=== PATIENT | female | born 1950 | race Caucasian/White ===

== ENCOUNTER 2016-10-07 09:20 | Emergency (ER) | payer OTHER ==
[2016-10-07 09:31] VITALS: BP 128/57; PULSE 70; TEMP 98.6; BMI 20.1
[2016-10-07] MEDS ORDERED: MECLIZINE HCL 25 MG TABLET (FP) PO ONE (10:09)
[2016-10-07] MEDS ORDERED: MECLIZINE HCL 25 MG TABLET (FP) ONE (10:11)
--- NOTE | 2016-10-07 10:34 | PDOC ---
History of Present Illness - General Chief Complaint: Lightheaded Stated Complaint: DIZZINESS, FALL, RT THIGH PAIN Time Seen by Provider: 10/07/16 09:44 - History of Present Illness Initial Comments: 10/07/16 10:33 66-year-old female with a past medical history of MS, epilepsy, and GERD Her MS has been quiescent recently, but she does have some chronic left sided weakness due to the MS She also states that she stopped her Neurontin in the past few weeks Patient was in her usual state of health, when at 8:30 this morning she had the sudden onset of severe vertigo She denies any double vision, but does admit to some blurred vision She denies any change in her chronic left-sided weakness, and she denies any new left or right sided weakness She states that she was very dizzy, like the room was spinning, and was unable to walk She denies any recent intercurrent illnesses, and she denies any earache She states when she got up, she did "crumble" to her left side, and slid down, but denies any acute injury She states that she's felt a little diffusely shaky for the past few days, but nothing focal She denies any headache, fevers or chills, double vision She denies any chest pain or shortness of breath She denies any other complaints at this time, and the remainder of the review of systems is negative Past History - Past Medical History Allergies/Adverse Reactions: Allergies Allergy/AdvReac Type Severity Reaction Status Date / Time No Known Allergies Allergy Verified 10/07/16 09:22 Home Medications: Ambulatory Orders Esomeprazole Magnesium 40 mg PO DAILY 12/06/15 Glatiramer Acetate [Copaxone] 40 mg SQ MOWEFR 12/06/15 Lamotrigine [Lamictal] 300 mg PO BID 12/06/15 Lorazepam [Ativan] 1 mg PO PRN PRN 12/06/15 Eletriptan Hydrobromide [Relpax -] 20 mg PO ASDIR PRN 10/07/16 Lorazepam [Ativan] 0.25 mg PO HS 10/07/16 Lorazepam [Ativan] 0.5 mg PO TID PRN #14 tablet MDD 3 10/07/16 Meclizine HCl [Antivert -] 25 mg PO TID #21 tablet 10/07/16 Prednisone [Deltasone -] 20 mg PO DAILY #15 tablet 10/07/16 Anemia: No Asthma: No Cancer: No Cardiac Disorders: No CVA: No COPD: No CHF: No DVT: No Dementia: No Diabetes: No Dialysis: No GI Disorders: Yes (GERD) Disorders: No HTN: No Hypercholesterolemia: No HIV: No Kidney Stones: No Liver Disease: No Psychiatric Problems: No Suicide Attempt (Hx): No Seizures: Yes Thyroid Disease: No Lung CA: No Other medical history: MS - Psycho/Social/Smoking Cessation Hx Anxiety: No Suicidal Ideation: No Smoking History: Never smoked Information on smoking cessation initiated: No Hx Alcohol Use: No Drug/Substance Use Hx: No Substance Use Type: None Review of Systems - Review of Systems Able to Perform ROS?: Yes Comments:: 10/07/16 10:39 12 point review of systems is as per history of present illness and otherwise negative *Physical Exam - Vital Signs Last Vital Signs Temp Pulse Resp BP Pulse Ox 98.6 F 70 18 128/57 98 10/07/16 09:20 10/07/16 09:20 10/07/16 09:20 10/07/16 09:20 10/07/16 09:20 - Physical Exam Comments: 10/07/16 10:42 Physical exam Last Vital Signs Temp Pulse Resp BP Pulse Ox 98.6 F 70 18 128/57 98 10/07/16 09:20 10/07/16 09:20 10/07/16 09:20 10/07/16 09:20 10/07/16 09:20 GENERAL: The patient is awake, alert, and fully oriented, and in no apparent distress. HEAD: Normal with no signs of trauma. EYES: Pupils equal, round and reactive to light, extraocular movements intact, sclera anicteric, conjunctiva are normal. No nystagmus is noted ENT: TMs normal, nares patent, oropharynx clear without exudates. Moist mucous membranes. NECK: Normal range of motion, supple Rapid change in head position reproduces the symptoms LUNGS: Breath sounds equal, clear to auscultation bilaterally. No wheezes, and no crackles. HEART: Regular rate and rhythm, normal S1 and S2 without murmur, rub or gallop. ABDOMEN: Soft, nontender, normoactive bowel sounds. No guarding, no rebound. No masses appreciated. EXTREMITIES: Normal range of motion, no edema. No clubbing or cyanosis. No cords, erythema, or tenderness. No tenderness or bruising is noted on the right or left thigh NEURO: Mental status: The patient is oriented x3. Cranial nerves: Cranial nerves II through XII are intact There is a subtle facial asymmetry noted, but patient states that that is her baseline She does have an equal smile, and is able to close and open her eyes and raises her eyebrows equally Motor: There is mild decreased strength in the left upper and left lower extremity, which patient states is at her baseline and unchanged Motor strength on the right side is normal Cerebellar: [id number] is normal in both upper extremities. Heel-knee- williamson is normal in both lower extremities. Patient was very dizzy when I attempted to stand her up and walk her, and was unsteady Gait: Not testable at this time PSYCH: Normal mood, normal affect. SKIN: Warm, Dry, normal turgor, no rashes or lesions noted. ED Treatment Course - LABORATORY CBC & Chemistry Diagram: 10/07/16 10:15 10/07/16 10:15 - RADIOLOGY Radiology Studies Ordered: Category Date Time Status BRAIN MRI W&W/O CONTRAST [MRI] Stat MRI 10/07/16 10:27 Ordered - Medications Given in the ED: ED Medications Discontinued Medications Generic Name Dose Route Start Last Admin Trade Name Freq PRN Reason Stop Dose Admin Meclizine HCl 25 mg 10/07/16 10:09 10/07/16 10:15 Antivert - PO 10/07/16 10:10 25 mg ONCE ONE Administration Medical Decision Making - Medical Decision Making 10/07/16 10:45 Case discussed with patient's Neurologist/MS specialist Dr Bin Morales, [address] [facility] He thinks this is more likely to be peripheral rather than central, However, he is concerned about potentially new MS activity in the brainstem or cerebellar area He states her MS has been quiescent recently Will get a brain MRI with and without, with IAC views Approved by Dr. Llanos radiology EKG Normal sinus rhythm 71, normal axis Normal AV and IV conduction time Normal EKG 10/07/16 11:30 Patient starting to feel better after Antivert Awaiting MRI Laboratory Results - last 24 hr 10/07/16 10/07/16 10/07/16 10:15 10:15 10:30 WBC 5.6 RBC 4.17 Hgb 12.0 Hct 36.9 MCV 88.5 MCHC 32.6 RDW 12.6 Plt Count 243 MPV 8.4 Sodium 141 Potassium 4.0 Chloride 101 Carbon Dioxide 30 H Anion Gap 10 BUN 13 Creatinine 0.8 Creat Clearance w eGFR > 60 Random Glucose 96 Calcium 9.5 Magnesium 2.0 Total Bilirubin 0.4 AST 25 ALT 19 Alkaline Phosphatase 77 Creatine Kinase 85 Troponin I < 0.03 L Total Protein 7.0 Albumin 4.0 10/07/16 14:06 MRI with and without contrast IAC cuts included No acute ischemic changes are seen The IAC's are normal and symmetrical No abnormal signal intensity is seen in the medulla, laura, mesencephalon, or cerebellar hemispheres Slightly widened cerebellar sulci are noted No abnormality is seen in the pontomedullary junction region Major caliber vascular structures including [place] and peripheral dural venous sinuses show normal flow Supratentorial white matter disease is noted, consistent with the patient's known history of MS Patient feeling much better after Antivert, ambulatory without difficulty with normal gait Impression-peripheral vertigo, history of stable MS *DC/Admit/Observation/Transfer Diagnosis at time of Disposition: Vertigo - Discharge Dispostion Disposition: HOME Condition at time of disposition: Improved - Prescriptions Prescriptions: Meclizine HCl [Antivert -] 25 mg PO TID #21 tablet Lorazepam [Ativan] 0.5 mg PO TID PRN #14 tablet MDD 3 PRN Reason: Vertigo Prednisone [Deltasone -] 20 mg PO DAILY #15 tablet - Patient Instructions Printed Discharge Instructions: Vertigo Additional Instructions: Antivert (meclizine)-one pill every 8 hours Prednisone taper as directed-start today Ativan as directed if needed-do not drive if you are taking this medication Followup with your primary care physician in 24-48 hours Return immediately if you worsen in any way Take your medications as directed Please follow-up with your neurologist as soon as possible Please drink plenty of water today to flush the MRI dye out of your system
[2016-10-07 10:57] LABS: MCH 28.9 pg (25.7-33.7); MCHC 32.6 g/dl (32.0-36.0); MEAN CELL VOLUME 88.5 fl (80-96); MEAN PLT VOLUME 8.4 fl (7.5-11.1); PLATELET COUNT 243 K/MM3 (134-434); RDW 12.6 % (11.6-15.6); WHITE BLOOD COUNT 5.6 K/mm3 (4.0-10.0)
[2016-10-07 11:02] LABS: CPK(DFH) 85 IU/L (26-140)
[2016-10-07 11:03] LABS: ALK PHOS 77 U/L (32-92); ANION GAP 10 (8-16); BILIRUBIN,TOTAL 0.4 mg/dl (0.2-1.0); CALCIUM 9.5 mg/dl (8.4-10.2); CO2 30 mmol/L (22-28); CREATININE 0.8 mg/dl (0.6-1.3); GLUCOSE,RANDOM 96 mg/dl (74-106); SGOT/AST 25 U/L (10-42); SGPT/ALT 19 U/L (10-40)
[2016-10-07 11:16] LABS: TROPONIN I (DFP) < 0.03 ng/ml (0.03-0.50)
[2016-10-07] MEDS ORDERED: SODIUM CHLORIDE 1,000 ML IV STA (11:20)
--- NOTE | 2016-10-08 09:54 | EKG ---
Test Reason : Blood Pressure : / mmHG Vent. Rate : 071 BPM Atrial Rate : 071 BPM P-R Int : 160 ms QRS Dur : 080 ms QT Int : 386 ms P-R-T Axes : 080 063 060 degrees QTc Int : 419 ms NORMAL SINUS RHYTHM NORMAL ECG NO PREVIOUS ECGS AVAILABLE Confirmed by OLGA BIRD MD ([id number]) on 10/08/2016 9:54:05 AM Referred By: DIANA LOW Confirmed By:OLGA BIRD MD
== END 2016-10-07 14:30 | disposition home or self-care (01) ==
LOC: FER 09:20
PROC: 3E0337Z Introduction of Electrolytic and Water Balance Substance into Peripheral Vein, Percutaneous Approach (ICD-10-PCS; principal; 2016-10-07)
DX: R42 Dizziness and giddiness (principal); G35 Multiple sclerosis; K21.9 Gastro-esophageal reflux disease without esophagitis; G40.909 Epilepsy, unspecified, not intractable, without status epilepticus
CPT/HCPCS: 36415; 70553-TC; 80053; 82550; 83735; 84484; 85027; 93005; 99285-25; Q9967

== ENCOUNTER 2017-04-12 14:25 | Emergency (ER) | payer OTHER ==
--- NOTE | 2017-04-12 14:59 | PDOC ---
History of Present Illness - General History Source: Patient Exam Limitations: No Limitations - History of Present Illness Initial Comments: 04/12/17 15:13 67 y/o F with a PMHx of MS, epilepsy, vertigo, osteoporosis presents to the ED with bilateral blurry vision since yesterday. The patient states that she has associated right eye pain and migraines. She describes her right eye pain as feeling like she was punched in the face. She took her migraine medication yesterday with relief, but did not take it today. Patient went to urgent care today with the same symptoms, and they sent her to the ED for further evaluation. She believes that the blurry vision is attributed to looking at the eclipse. She reports wearing special glasses to protect her eyes when viewing the eclipse, but believes they did not work. Patients daughter reports that she has MS flare ups often, and believes this could be a new symptom of her MS. She denies similar symptoms in the past. She denies double vision. Denies allergies. Denies alcohol, tobacco, or drug use. Neurologist: Dr. Bin Morales <Hannah Salcido - Last Filed: 04/12/17 15:33> - General History Source: Patient, Old Records Exam Limitations: No Limitations <Lilly Reeder - Last Filed: 04/12/17 16:07> - General Chief Complaint: Eye Problem Stated Complaint: BLURRED VISION & VERTIGO Time Seen by Provider: 04/12/17 14:58 Past History <Hannah Salcido - Last Filed: 04/12/17 15:33> - Past Medical History Anemia: No Asthma: No Cancer: No Cardiac Disorders: No CVA: No COPD: No CHF: No DVT: No Dementia: No Diabetes: No Dialysis: No GI Disorders: Yes (GERD) Disorders: No HTN: No Hypercholesterolemia: No HIV: No Kidney Stones: No Liver Disease: No Psychiatric Problems: No Suicide Attempt (Hx): No Seizures: Yes Thyroid Disease: No Lung CA: No - Psycho/Social/Smoking Cessation Hx Anxiety: No Suicidal Ideation: No Smoking History: Never smoked Hx Alcohol Use: No Drug/Substance Use Hx: No Substance Use Type: None <Lilly Reeder - Last Filed: 04/12/17 16:07> - Past Medical History Allergies/Adverse Reactions: Allergies Allergy/AdvReac Type Severity Reaction Status Date / Time No Known Allergies Allergy Verified 04/12/17 14:46 Home Medications: Ambulatory Orders Esomeprazole Magnesium 40 mg PO DAILY 12/06/15 Glatiramer Acetate [Copaxone] 40 mg SQ MOWEFR 12/06/15 Lamotrigine [Lamictal] 300 mg PO BID 12/06/15 Eletriptan Hydrobromide [Relpax -] 20 mg PO ASDIR PRN 10/07/16 Lorazepam [Ativan] 0.25 mg PO HS 10/07/16 Cholecalciferol (Vitamin D3) [Vitamin D3] 2,000 unit PO DAILY 04/12/17 Lorazepam [Ativan] 1 mg PO TID PRN MDD 3 04/12/17 Meclizine HCl [Antivert -] 25 mg PO TID PRN 04/12/17 Multivitamins [Tab-A-Vit -] 1 tab PO MOWEFR 04/12/17 Review of Systems - Review of Systems Able to Perform ROS?: Yes Comments:: 04/12/17 15:13 GENERAL/CONSTITUTIONAL: No fever or chills. No weakness. HEAD, EYES, EARS, NOSE AND THROAT: (+) bilateral blurry vision, right eye pain. No ear pain or discharge. No sore throat. CARDIOVASCULAR: No chest pain or shortness of breath. RESPIRATORY: No cough, wheezing, or hemoptysis. GASTROINTESTINAL: No nausea, vomiting, diarrhea or constipation. GENITOURINARY: No dysuria, frequency, or change in urination. MUSCULOSKELETAL: No joint or muscle swelling or pain. No neck or back pain. SKIN: No rash NEUROLOGIC: (+) migraine. No loss of consciousness, or change in strength/ sensation. ENDOCRINE: No increased thirst. No abnormal weight change. HEMATOLOGIC/LYMPHATIC: No anemia, easy bleeding, or history of blood clots. ALLERGIC/IMMUNOLOGIC: No hives or skin allergy. <Hannah Salcido - Last Filed: 04/12/17 15:33> *Physical Exam - Vital Signs Last Vital Signs Temp Pulse Resp BP Pulse Ox 98.5 F 85 15 121/56 99 04/12/17 14:28 04/12/17 14:28 04/12/17 14:28 04/12/17 14:28 04/12/17 14:28 - Physical Exam Comments: 04/12/17 15:13 GENERAL: Awake, alert, and fully oriented, in no acute distress HEAD: No signs of trauma EYES: PERRLA, EOMI, sclera anicteric, conjunctiva clear, visual acuity ENT: Auricles normal inspection, hearing grossly normal, nares patent, oropharynx clear without exudates. Moist mucosa NECK: Normal ROM, supple, no lymphadenopathy, JVD, or masses LUNGS: Breath sounds equal, clear to auscultation bilaterally. No wheezes, and no crackles HEART: Regular rate and rhythm, normal S1 and S2, no murmurs, rubs or gallops ABDOMEN: Soft, nontender, normoactive bowel sounds. No guarding, no rebound. No masses EXTREMITIES: Normal range of motion, no edema. No clubbing or cyanosis. No cords, erythema, or tenderness NEUROLOGICAL: Cranial nerves II through XII grossly intact. Normal speech, normal gait SKIN: Warm, Dry, normal turgor, no rashes or lesions noted. <Hannah Salcido - Last Filed: 04/12/17 15:33> ED Treatment Course - LABORATORY CBC & Chemistry Diagram: 04/12/17 15:00 04/12/17 15:00 <Hannah Salcido - Last Filed: 04/12/17 15:33> - LABORATORY CBC & Chemistry Diagram: 04/12/17 15:00 04/12/17 15:00 <Lilly Reeder - Last Filed: 04/12/17 16:07> Medical Decision Making - Medical Decision Making 04/12/17 15:17 67-year-old female with history of multiple sclerosis, seizure disorder and migraine headaches who presents to the emergency department for evaluation of blurred vision 4 days. The patient is well-appearing and has visual acuity of 20/20 in the right eye and 20/25 in the left eye. She is also neurologically nonfocal. Differential diagnosis includes but is not limited to: Migraine headache, MS flare, infection, electrolyte abnormality, toxic/metabolic derangement. Plan: 1. I've discussed the case with the patient's neurologist, Dr. Bin Morales . The plan is to check basic labs, urine and refer as outpatient to see ophthalmology and neurology tomorrow if everything is within normal parameters 2. Observe and reevaluate 04/12/17 16:04 Addendum: Labs were reviewed and are noted in the EMR. CXR is negative. Will discharge home. I have instructed the patient to see her neurologist in the morning and to follow-up with an door frame assembler machine tomorrow as well. I have also advised the patient to return to the ED if her Sx persist, worsen or new Sx arise. <Lilly Reeder - Last Filed: 04/12/17 16:07> *DC/Admit/Observation/Transfer - Attestations Scribe Attestion: 04/12/17 15:14 Documentation prepared by Hannah Salcido, acting as medical billing manager for Lilly Reeder MD. <Hannah Salcido - Last Filed: 04/12/17 15:33> - Discharge Dispostion Admit: No - Attestations Physician Attestion: 04/12/17 15:20 I, Dr. Lilly Reeder, attest that the scribes documentation that appears above has been prepared under my direction and personally reviewed by me in its entirety. I confirmed that the note above accurately reflects all work, treatment, procedures, and medical decision-making performed by me. <Lilly Reeder - Last Filed: 04/12/17 16:07> Diagnosis at time of Disposition: Blurry vision, bilateral, Multiple sclerosis - Discharge Dispostion Disposition: HOME Condition at time of disposition: Stable - Referrals Referrals: Denys Avila [Primary Care Provider] - - Patient Instructions Additional Instructions: Follow up with your neurologist tomorrow as well as an eye doctor. Return to the ED if your symptoms persist, worsen or new symptoms arise.
[2017-04-12 15:10] VITALS: BP 121/56; PULSE 85; TEMP 98.5; BMI 19.3
[2017-04-12 15:18] LABS: PH,URINE 5.5 (4.5-8); URINE APPEARANCE Clear; URINE BILIRUBIN Negative (NEGATIVE); URINE BLOOD 1+ (NEGATIVE); URINE GLUCOSE (UA) Negative (NEGATIVE); URINE KETONE Negative (NEGATIVE); URINE LEUK ESTERASE Negative (NEGATIVE); URINE NITRITE Negative (NEGATIVE); URINE PROTEIN Negative (NEGATIVE); URINE UROBILINOGEN 0.2 (0.2-1.0)
[2017-04-12 15:19] LABS: URINE COLOR YELLOW
[2017-04-12 15:37] LABS: BASOPHIL 0.7 % (0-2.0); EOSINOPHIL 0.1 % (0-4.5); MCHC 33.2 g/dl (32.0-36.0); MEAN CELL VOLUME 90.6 fl (80-96); MEAN PLT VOLUME 8.2 fl (7.5-11.1); NEUTROPHILS 75.3 % (42.8-82.8); PLATELET COUNT 290 K/MM3 (134-434); RDW 13.7 % (11.6-15.6); WHITE BLOOD COUNT 8.5 K/mm3 (4.0-10.8)
[2017-04-12 15:50] LABS: URINE WBC 0-3 (3-5)
[2017-04-12 15:56] LABS: ALBUMIN 4.1 g/dl (3.5-5.0); ALK PHOS 89 U/L (32-92); ANION GAP 7 (8-16); BILIRUBIN,TOTAL 0.6 mg/dl (0.2-1.0); CALCIUM 9.4 mg/dl (8.4-10.2); CO2 28 mmol/L (22-28); CREATININE 0.7 mg/dl (0.6-1.3); GLUCOSE,RANDOM 114 mg/dl (74-106); PHOSPHOROUS 3.4 mg/dl (2.5-4.6); SGOT/AST 26 U/L (10-42); SGPT/ALT 22 U/L (10-40); TOT PROT 7.2 g/dl (6.4-8.3)
== END 2017-04-12 16:16 | disposition home or self-care (01) ==
LOC: FER 14:25
DX: H53.8 Other visual disturbances (principal); G35 Multiple sclerosis; K21.9 Gastro-esophageal reflux disease without esophagitis
CPT/HCPCS: 36415; 71020-TC; 80053; 81003; 81015; 83735; 84100; 85025; 99282-25